=== PATIENT | female | born 1985 | race Hispanic/Latino ===

== ENCOUNTER 2018-05-23 12:54 | Outpatient (CLI) | payer BC ==
--- NOTE | 2018-05-23 13:58 | ULT ---
BILATERAL RENAL ULTRASOUND: Date: 05/23/18 HISTORY: UTI. FINDINGS: Real-time imaging of the right and left kidneys were performed. The right kidney measures 9.9 cm and the left kidney measures 9.8 cm in size. No signs of cyst, mass, or obstruction. The bladder region i s unremarkable. IMPRESSION: Unremarkable renal ultrasound. POS: [facility]
== END 2018-05-23 12:55 | disposition home or self-care (01) ==
LOC: BICULT 12:54
PROVIDERS: ATTEND Family Medicine
DX: N39.0 Urinary tract infection, site not specified (principal)
CPT/HCPCS: 76770

== ENCOUNTER 2018-07-02 11:02 | Outpatient (CLI) | payer BC ==
--- NOTE | 2018-07-02 13:54 | CT ---
CT OF THE ABDOMEN AND PELVIS WITH AND WITHOUT IV CONTRAST: Date: 07/02/18 INDICATION: History of recurrent UTIs with microscopic hematuria. COMPARISON: None. CONTRAST: 70 mL [id number]. FINDINGS: No renal or ureteral calculus is evident. No hydronephrosis is demonstrated. No solid renal lesion is identified. No gross enhancing urothelial lesion is noted. No gross filling defect is evident within the visualized bladder, as well as the partially opacified renal collecting systems. The lung bases are clear. There is a small, fat-containing Bochdalek's hernia. There is a small hiatal hernia. No focal hepatic lesion is evident. The spleen, pancreas, and adrenal glands are normal appearing. There is a mild amount of retained stool within the colon. There is a normal appendix in the right lower quadrant of the abdomen. The uterus, adnexa, rectum, an d perirectal soft tissues are unremarkable appearing. No definite acute osseous abnormality is evident. IMPRESSION: 1. No renal or ureteral calculus. 2. No definite solid renal lesion demonstrated. 3. No gross urothelial lesion is evident within limitations of exam. POS: [facility]
[2018-07-02] MEDS ORDERED: ISOVUE-370 76%-LOCM 1 ML ONE (16:52)
== END 2018-07-02 11:03 | disposition home or self-care (01) ==
LOC: BICCT 11:02
PROVIDERS: ATTEND Urology
DX: N39.0 Urinary tract infection, site not specified (principal); R31.29 Other microscopic hematuria
CPT/HCPCS: 74178